=== PATIENT | female | born 1975 | race Caucasian/White ===

== ENCOUNTER 2017-01-10 10:56 | Outpatient (CLI) | payer OTHER ==
--- NOTE | 2017-01-10 12:18 | DIAGNOSTIC IMAGING REPORT ---
PROCEDURE: XR KNEE 3 VIEWS - RIGHT INDICATION: R KNEE PAIN AND WEAKNESS FOR 2 YEARS TECHNIQUE: Three views. COMPARISON: None. FINDINGS: Mild spurring of all three joint compartments. Minor narrowing of the medial compartment. No effusion. IMPRESSION: 1. Mild degenerative changes and narrowing of the medial compartment
--- NOTE | 2017-01-10 12:54 | DIAGNOSTIC IMAGING REPORT ---
PROCEDURE: US ART LOWER EXT WITH RAVINDER-B/L INDICATION: DUSKY FEET,PAIN TECHNIQUE: Preexercise ABIs were performed. The patient was exercised ( 50 toe-ups) and postexercise ABIs were repeated followed by color Doppler duplex imaging of the lower extremities. COMPARISON: None. FINDINGS: RIGHT LOWER EXTREMITY: ABIs: Pre exercise ABIs: Posterior tibial 1.2 and dorsalis pedis 1.1. Post exercise ABIs: Posterior tibial 1.1 and dorsalis pedis 1.0. All normal. VESSELS: Minimal plaque formation. Normal triphasic wave form throughout the right lower extremity. RIGHT LOWER EXTREMITY PEAK SYSTOLIC VELOCITIES: Common femoral artery: 147 cm/second. Profunda femoral artery: 83 cm/second. Proximal superficial femoral artery: 135 cm/second. Mid superficial femoral artery: 97 cm/second. Distal superficial femoral artery: 93 cm/second. Popliteal artery: 70 cm/second. Proximal posterior tibial artery: 50 cm/second. Proximal anterior tibial artery: 45 cm/second. Distal posterior tibial artery: 75 cm/second. Dorsalis pedis artery: 26 cm/second. LEFT LOWER EXTREMITY: ABIs: Pre exercise ABIs: Posterior tibial and dorsalis pedis both 1.1. Post exercise ABIs: Posterior tibial and dorsalis pedis both 1.0. All normal. VESSELS: Minimal plaque formation. Normal triphasic wave form throughout the left lower extremity. LEFT LOWER EXTREMITY PEAK SYSTOLIC VELOCITIES: Common femoral artery: 160 cm/second. Profunda femoral artery: 85 cm/second. Proximal superficial femoral artery: 128 cm/second. Mid superficial femoral artery: 120 cm/second. Distal superficial femoral artery: 79 cm/second. Popliteal artery: 54 cm/second. Proximal posterior tibial artery: Not well visualized. Proximal anterior tibial artery: 33 cm/second. Distal posterior tibial artery: 44 cm/second. Dorsalis pedis artery: 34 cm/second. IMPRESSION: 1. No evidence of resting or postexercise arterial insufficiency in both lower extremities which demonstrated normal triphasic wave flow. No evidence of focal stenosis.
== END 2017-01-10 23:00 ==
LOC: US SRH 10:56
DX: M25.561 Pain in right knee (principal); M17.11 Unilateral primary osteoarthritis, right knee